=== PATIENT | male | born 1965 | race Caucasian/White ===

== ENCOUNTER 2022-03-08 02:47 | Observation (INO) ==
[2022-03-08 12:28] LABS: Basophils # 0.1 10*3/uL (0.0-0.2); Basophils % 0.7 % (0.0-0.8); Eosinophils # 0.3 10*3/uL (0.0-0.87); Eosinophils % 4.2 % (0.00-10.9); Hematocrit 47.5 VOL% (42.0-52.0); Hemoglobin 15.6 GM/DL (14.0-18.0); Immature Granulocytes % 0.5 %; Immature Granulocytes Absolute 0.04 #; Lymphocytes # 2.9 10*3/uL (1.4-4.0); Lymphocytes % 39.5 % (21.2-54.2); Mean Corpuscular HGB Conc 32.8 GM/DL (32-36); Mean Corpuscular Volume 89.5 FL (87-102); Mean Platelet Volume 9.6 FL (9.6-12.0); Monocytes # 0.6 10*3/uL (0.11-0.8); Monocytes % 8.2 % (1.7-12.7); Neutrophils % 46.9 % (38.7-73.9); Platelet Count 259 T/CUMM (130-400); Red Blood Count 5.31 MC/CUMM (3.8-5.5); White Blood Count 7.4 T/CUMM (4-12)
[2022-03-08] MEDS ORDERED: NICOTINE 21 MG/24 HR PATCH TRANSDERM PRN (12:43)
[2022-03-08] MEDS ORDERED: guaiFENesin/DM ER 600-30 MG TABLET PO PRN (12:43)
[2022-03-08] MEDS ORDERED: ALUMINUM/MAGNES/SIMETH MAX STR 30 ML UDCUP PO PRN (12:43)
[2022-03-08] MEDS ORDERED: ONDANSETRON 4 MG/2 ML VIAL IV PRN (12:43)
[2022-03-08] MEDS ORDERED: LACTULOSE 20 GM/30 ML UDCUP PO PRN (12:43)
[2022-03-08] MEDS ORDERED: SIMETHICONE CHEW 125 MG TABLET PO PRN (12:43)
[2022-03-08] MEDS ORDERED: ALBUTEROL 2.5 MG/3 ML NEB RESP TX PRN (12:43)
[2022-03-08] MEDS ORDERED: CALCIUM CARBONATE CHEW 500 MG TABLET PO PRN (12:43)
[2022-03-08] MEDS ORDERED: ACETAMINOPHEN 325 MG TABLET PO PRN (12:43)
[2022-03-08] MEDS ORDERED: BISACODYL 5 MG TABLET PO PRN (12:43)
[2022-03-08] MEDS ORDERED: NITROGLYCERIN SL 0.4 MG TABLET SL PRN (12:47)
[2022-03-08] MEDS ORDERED: DEXTROSE 10% 250 ML BAG IV PRN (12:48)
[2022-03-08] MEDS ORDERED: GLUCAGON 1 MG VIAL IM PRN (12:48)
[2022-03-08 12:49] LABS: Atypical Lymphocytes Few; Band Neutrophils 1 % (0-10); Eosinophils 3 % (0-10); Lymphocytes 39 % (20-55); Platelet Estimate Normal; Total Cells Counted 100
[2022-03-08 12:50] LABS: Anisocytosis Slight
[2022-03-08 12:54] LABS: Albumin 4.1 G/DL (3.4-5.0); Bilirubin,Total 0.4 MG/DL (0.20-1.00); Osmolality,Calculated 278.5 MOS/KG (273-304); Potassium 4.3 MMOL/L (3.5-5.1); Total Protein 7.4 G/DL (6.4-8.2)
[2022-03-08 14:12] LABS: Glucose,Urine (UA) >=1000 mg/dL (Negative); Protein,Urine 100 mg/dL (Negative); Urine Appearance Clear (Clear); Urine Color Yellow (Yellow)
[2022-03-08 14:13] LABS: Bilirubin,Urine Negative (Negative); Blood, Urine Large mg/dL (Negative); Ketones,Urine Negative (Negative); Nitrite,Urine Negative (Negative); Urine Urobilinogen 0.2 eU/dL (<2.0)
[2022-03-08] MEDS: LACTATED RINGERS 1,000 ML IV SCH ×2 (14:13→23:16)
[2022-03-08 14:15] LABS: RBC,Urine 2701 /HPF (0-4)
[2022-03-08] MEDS: INSULIN REGULAR 100 UNIT/ML SUBCUT SCH ×2 (16:44→21:20)
[2022-03-08 18:02] LABS: Hematocrit 41.1 VOL% (42.0-52.0); Hemoglobin 13.8 GM/DL (14.0-18.0)
[2022-03-08] MEDS: FLUTICASONE/SALMETEROL 250-50 DISKUS 14 DOSE INH SCH (21:19)
[2022-03-08] MEDS: TAMSULOSIN 0.4 MG CAPSULE PO SCH (21:19)
[2022-03-09 01:06] LABS: Basophils # 0.1 10*3/uL (0.0-0.2); Basophils % 0.9 % (0.0-0.8); Eosinophils # 0.4 10*3/uL (0.0-0.87); Eosinophils % 5.3 % (0.00-10.9); Hematocrit 40.3 VOL% (42.0-52.0); Hemoglobin 13.6 GM/DL (14.0-18.0); Immature Granulocytes % 0.4 %; Immature Granulocytes Absolute 0.03 #; Lymphocytes # 2.7 10*3/uL (1.4-4.0); Lymphocytes % 35.5 % (21.2-54.2); Mean Corpuscular HGB Conc 33.7 GM/DL (32-36); Mean Corpuscular Volume 88.6 FL (87-102); Mean Platelet Volume 9.9 FL (9.6-12.0); Monocytes # 0.5 10*3/uL (0.11-0.8); Monocytes % 7.2 % (1.7-12.7); Neutrophils % 50.7 % (38.7-73.9); Platelet Count 224 T/CUMM (130-400); Red Blood Count 4.55 MC/CUMM (3.8-5.5); Red Cell Distribution Width 12.9 % (9.3-17.3); White Blood Count 7.5 T/CUMM (4-12)
[2022-03-09 01:21] LABS: INR 0.9; PT Patient Result 10.4 SECS (10.1-12.1); Partial Thromboplastin Time 26.2 SECS (23.7-32.9)
[2022-03-09 01:33] LABS: Risk Ratio 4.26; Thyroid Stimulating Hormone 2.44 uIU/ml (0.358-3.74); VLDL Cholesterol 69.2 MG/DL
[2022-03-09] MEDS ORDERED: cefTRIAXone 1,000 MG in SODIUM CHLORIDE 0.9% 100 ML IV ONE (06:00)
[2022-03-09] MEDS ORDERED: SEVOFLURANE 1 UNIT/15 MINUTE INH ONE (06:45)
[2022-03-09] MEDS ORDERED: ONDANSETRON 4 MG/2 ML VIAL ONE (06:45)
[2022-03-09] MEDS ORDERED: propofoL 200 MG/20 ML VIAL IV ONE (06:45)
[2022-03-09] MEDS ORDERED: LIDOCAINE 2% 5 ML VIAL ONE (06:45)
[2022-03-09] MEDS ORDERED: MIDAZOLAM 2 MG/2 ML VIAL ONE (06:46)
[2022-03-09] MEDS ORDERED: fentaNYL 100 MCG/2 ML VIAL ONE (06:46)
[2022-03-09] MEDS ORDERED: FAMOTIDINE 20 MG TABLET PO ONE (06:47)
[2022-03-09] MEDS ORDERED: PHENYLEPHRINE 1 MG/10 ML SYRINGE IV ONE (07:30)
[2022-03-09] MEDS ORDERED: LIDOCAINE 2% TOP JELLY 20 ML VIAL INTRAURETH ONE (07:45)
[2022-03-09] MEDS ORDERED: LACTATED RINGERS 1,000 ML IV ONE (07:55)
[2022-03-09] MEDS: LACTATED RINGERS 1,000 ML IV SCH ×2 (08:01→09:35)
[2022-03-09] MEDS: INSULIN REGULAR 100 UNIT/ML SUBCUT SCH ×4 (08:06→21:53)
[2022-03-09] MEDS ORDERED: DEXTROSE 50% 25 GM/50 ML VIAL IV PRN (08:08)
[2022-03-09] MEDS ORDERED: GLUCAGON 1 MG VIAL IM PRN (08:08)
[2022-03-09] MEDS: FLUTICASONE/SALMETEROL 250-50 DISKUS 14 DOSE INH SCH ×2 (09:34→20:32)
[2022-03-09] MEDS: OMEGA 3 ACID ETHYL ESTERS 1 GM CAPSULE PO SCH ×2 (09:35→20:31)
[2022-03-09] MEDS: ASPIRIN EC 81 MG TABLET PO SCH (09:35)
[2022-03-09] MEDS: lisinopriL 5 MG TABLET PO SCH (09:36)
[2022-03-09] MEDS: PANTOPRAZOLE 40 MG TABLET PO SCH (09:36)
[2022-03-09] MEDS: METOPROLOL SUCCINATE XL 25 MG TABLET PO SCH (09:36)
[2022-03-09] MEDS: FENOFIBRATE 145 MG TABLET PO SCH (09:36)
[2022-03-09] MEDS: TICAGRELOR 90 MG TABLET PO SCH ×2 (10:37→20:32)
[2022-03-09] MEDS: metFORMIN 500 MG TABLET PO SCH (20:32)
[2022-03-09] MEDS: TAMSULOSIN 0.4 MG CAPSULE PO SCH (20:32)
[2022-03-10 05:56] LABS: Basophils # 0.1 10*3/uL (0.0-0.2); Basophils % 0.6 % (0.0-0.8); Eosinophils # 0.3 10*3/uL (0.0-0.87); Eosinophils % 3.1 % (0.00-10.9); Hematocrit 39.6 VOL% (42.0-52.0); Immature Granulocytes % 0.3 %; Immature Granulocytes Absolute 0.03 #; Lymphocytes # 2.6 10*3/uL (1.4-4.0); Lymphocytes % 28.2 % (21.2-54.2); Mean Corpuscular HGB Conc 32.8 GM/DL (32-36); Mean Corpuscular Volume 89.2 FL (87-102); Mean Platelet Volume 10.3 FL (9.6-12.0); Monocytes # 0.8 10*3/uL (0.11-0.8); Monocytes % 8.2 % (1.7-12.7); Neutrophils % 59.6 % (38.7-73.9); Platelet Count 214 T/CUMM (130-400); Red Blood Count 4.44 MC/CUMM (3.8-5.5); Red Cell Distribution Width 12.9 % (9.3-17.3); White Blood Count 9.3 T/CUMM (4-12)
[2022-03-10 06:11] LABS: Calcium 8.8 MG/DL (8.5-10.1); Osmolality,Calculated 280.4 MOS/KG (273-304); Potassium 4.1 MMOL/L (3.5-5.1)
[2022-03-10] MEDS: INSULIN REGULAR 100 UNIT/ML SUBCUT SCH ×4 (07:41→21:59)
[2022-03-10] MEDS: FLUTICASONE/SALMETEROL 250-50 DISKUS 14 DOSE INH SCH ×2 (08:39→20:50)
[2022-03-10] MEDS: ASPIRIN EC 81 MG TABLET PO SCH (08:41)
[2022-03-10] MEDS: PANTOPRAZOLE 40 MG TABLET PO SCH (08:41)
[2022-03-10] MEDS: TICAGRELOR 90 MG TABLET PO SCH ×2 (08:41→20:52)
[2022-03-10] MEDS: FENOFIBRATE 145 MG TABLET PO SCH (08:41)
[2022-03-10] MEDS: lisinopriL 5 MG TABLET PO SCH (08:41)
[2022-03-10] MEDS: METOPROLOL SUCCINATE XL 25 MG TABLET PO SCH (08:42)
[2022-03-10] MEDS: metFORMIN 500 MG TABLET PO SCH ×2 (08:42→20:51)
[2022-03-10] MEDS: OMEGA 3 ACID ETHYL ESTERS 1 GM CAPSULE PO SCH ×2 (08:51→20:50)
[2022-03-10] MEDS ORDERED: DAPAGLIFLOZIN 10 MG TABLET PO SCH (09:00)
[2022-03-10] MEDS ORDERED: cefTRIAXone 1,000 MG in SODIUM CHLORIDE 0.9% 100 ML IV SCH (11:00)
[2022-03-10] MEDS: TAMSULOSIN 0.4 MG CAPSULE PO SCH (20:51)
[2022-03-11 04:40] VITALS: BP 110/67
== END 2022-03-11 04:35 | disposition home or self-care (01) ==
LOC: INTOOBSV 11:26 → SUATTDRO 11:26 → N.2E 11:26
PROVIDERS: ADMIT Internal Medicine; ATTEND Internal Medicine